=== PATIENT | female | born 1970 | race Caucasian/White ===

== ENCOUNTER 2017-10-10 05:30 | Day surgery (SDC) | payer OTHER ==
[~2017-10-10 05:30] MED LIST: ABILIFY5 MG PO; AMARYL PO; AMBIEN10 MG PO; ATACAND HCT 11 UDTA1 PO; CARAFATE SU1 G/10 ML PO; CLONAZEPAM0.5 MG PO; GAS-X80 MG PO; NEURONTIN300 MG PO; PRILOSEC OTC20 MG PO; ULTRACET PO
[2017-10-10] MEDS ORDERED: POLY119PG PO (10:39)
[2017-10-10] MEDS ORDERED: SURFAK240 M1 PO (10:39)
[2017-10-10] MEDS ORDERED: PERCOCET 5-3251 EACH PO (10:39)
== END 2017-10-10 12:45 | disposition home or self-care (01) ==
LOC: CIR.AMB 05:30
DX: K42.9 Umbilical hernia without obstruction or gangrene (principal); K43.2 Incisional hernia without obstruction or gangrene

== ENCOUNTER 2017-11-22 07:27 | Outpatient (CLI) | payer OTHER ==
[~2017-11-22 07:27] MED LIST changes: +PERCOCET 5-3251 EACH PO; +POLY119PG PO; +SURFAK240 M1 PO
== END 2017-11-22 07:30 | disposition home or self-care (01) ==
LOC: SONOGRAMA 07:27
DX: E04.2 Nontoxic multinodular goiter (principal)

== ENCOUNTER 2023-04-06 07:34 | Outpatient (CLI) | payer OTHER | END 2023-04-06 07:39 | disposition home or self-care (01) | LOC: RX STUDY 07:34 | DX: K21.9 Gastro-esophageal reflux disease without esophagitis (principal) ==